=== PATIENT | male | born 1985 | race Caucasian/White ===

== ENCOUNTER → 2021-03-24 | Day surgery (SDC) | payer OTHER ==
[~2021-03-24] VITALS: Ht 170.2 cm; Wt 107.0 kg
[~2021-03-24] MED LIST: CRESTOR40 MG PO; DICYCLOMINE HCL10 MG PO; FLONASE ALLER15.8 ML; IMODIUM2 MG PO; NEURONTIN300 MG PO; VENTOLIN HFA IN18 GM INH; VITAMIN D3 PO
[2021-03-24 10:06] LABS: HCT 41.5 % (42.0-52.0); HGB 12.9 g/dl (13.2-18.0); MCH 24.6 pg (25.0-31.0); MCHC 31.1 g/dL (32.0-36.0); MPV 11.9 fL (6.0-9.5); RBC 5.25 M/uL (4.70-6.00); RDW 13.8 % (11.5-14.0)
[2021-03-24 10:23] LABS: BILIRUBIN - TOTAL 0.5 mg/dL (0.2-1.0); BUN/CREAT RATIO (CALC) 9.6 RATIO; CREATININE 1.14 mg/dL (0.67-1.17); GLOBULIN (CALCULATION) 3.6 g/dL; TOTAL PROTEIN 7.6 g/dL (6.4-8.2)
== END | disposition home or self-care (01) ==
LOC: FAS 09:06
PROVIDERS: Surgery
DX: K21.9 Gastro-esophageal reflux disease without esophagitis (principal); K29.80 Duodenitis without bleeding; K62.5 Hemorrhage of anus and rectum; K64.2 Third degree hemorrhoids; K29.60 Other gastritis without bleeding; K64.4 Residual hemorrhoidal skin tags; J45.909 Unspecified asthma, uncomplicated; K30 Functional dyspepsia; E78.5 Hyperlipidemia, unspecified; G43.909 Migraine, unspecified, not intractable, without status migrainosus; K58.9 Irritable bowel syndrome, unspecified; R19.7 Diarrhea, unspecified; Z88.0 Allergy status to penicillin; Z79.899 Other long term (current) drug therapy
CPT/HCPCS: 36415; 80053; J2250; J2704; J7120

== ENCOUNTER → 2021-10-07 | Day surgery (SDC) | payer OTHER ==
[~2021-10-07] VITALS: Ht 170.2 cm; Wt 109.0 kg
[~2021-10-07] MED LIST changes: +MIRALAX 238GM238 GM PO; +NORCO 5-325 TA1 EACH PO; +ONDANSETRON ODT8 MG PO; +PERCOCET 10-321 EACH PO; +RECTICARE30 GM TOP
[2021-10-07 07:59] LABS: HCT 32.7 % (42.0-52.0); HGB 10.1 g/dl (13.2-18.0); MCH 25.3 pg (25.0-31.0); MCHC 30.9 g/dL (32.0-36.0); MCV 81.8 fL (78.0-100.0); MPV 10.9 fL (6.0-9.5); RDW 14.2 % (11.5-14.0); WBC 4.7 K/uL (4.0-10.5)
[2021-10-07 08:21] LABS: ALBUMIN 3.8 g/dL (3.4-5.0); BILIRUBIN - TOTAL 0.4 mg/dL (0.2-1.0); BUN/CREAT RATIO (CALC) 12.3 RATIO; CREATININE 1.06 mg/dL (0.67-1.17); GLOBULIN (CALCULATION) 3.4 g/dL; POTASSIUM 4.3 mmol/L (3.5-5.1); TOTAL PROTEIN 7.2 g/dL (6.4-8.2)
== END | disposition home or self-care (01) ==
LOC: FAS 07:33
PROVIDERS: Surgery
DX: K64.3 Fourth degree hemorrhoids (principal); R10.13 Epigastric pain; R19.7 Diarrhea, unspecified; Z88.0 Allergy status to penicillin; Z79.899 Other long term (current) drug therapy
CPT/HCPCS: 36415; 80053; J1170; J2250; J2704; J3010; J7120